=== PATIENT | female | born 1995 | race Caucasian/White ===

== ENCOUNTER 2017-02-01 18:13 | Emergency (ER) | payer MEDICAID ==
[2017-02-01 18:23] VITALS: BP 142/87
[2017-02-01 18:41] LABS: BILIRUBIN,URINE NEGATIVE (NEGATIVE); PH,URINE 7.5 PH (5.0-7.5)
--- NOTE | 2017-02-01 18:42 | ED Physician Documentation ---
PD HPI FEMALE - Stated complaint Stated Complaint: FEMALE - Chief complaint Chief Complaint: General - History obtained from History obtained from: Patient - History of Present Illness Timing - onset: Today Timing - duration: Days (1) Timing - details: Gradual onset Pain level max: 2 Pain level max: 1 Associated symptoms: Dysuria, Urinary frequency, Hematuria. No: Fever, Abdominal pain, Back pain, Pelvic pain, Vaginal pain, Vaginal bleeding, Vaginal discharge Contributing factors: No: Similar symptoms before: Diagnosis (UTI) Recently seen: Not recently seen Review of Systems Constitutional: denies: Fever, Chills GI: denies: Abdominal Pain, Nausea, Vomiting, Diarrhea, Hematemesis, Bloody / black stool : denies: Now EGA Skin: denies: Rash Musculoskeletal: denies: Back pain PD PAST MEDICAL HISTORY - Past Medical History Past Medical History: No - Past Surgical History Past Surgical History: No - Present Medications Home Medications: Ambulatory Orders Medication Instructions Recorded Confirmed Nitrofurantoin Monohyd/M-Cryst 100 mg PO BID #10 capsule 02/01/17 [Macrobid 100 mg Capsule] Phenazopyridine HCl [Pyridium] 200 mg PO TID PRN #6 tablet 02/01/17 - Allergies Allergies/Adverse Reactions: Allergies Allergy/AdvReac Type Severity Reaction Status Date / Time No Known Drug Allergies Allergy Verified 02/01/17 18:22 - Living Situation Living Situation: reports: With family Living Arrangement: reports: At home - Social History Does the pt drink ETOH?: No Does the pt have substance abuse?: No PD ED PE NORMAL - Vitals Vital signs reviewed: Yes - General General: Alert and oriented X 3, No acute distress, Well developed/nourished - HEENT HEENT: Moist mucous membranes - Neck Neck: Supple, no meningeal sign - Cardiac Cardiac: RRR, Strong equal pulses - Respiratory Respiratory: No respiratory distress, Clear bilaterally - Abdomen Abdomen: Soft, Non tender, Non distended - Back Back: No CVA TTP, No spinal TTP - Derm Derm: Warm and dry - Neuro Neuro: Alert and oriented X 3 - Psych Psych: Normal mood, Normal affect Results - Vitals Vitals: Vital Signs - 24 hr 02/01/17 18:18 Temperature 36.8 C Heart Rate 94 Respiratory 18 Rate Blood Pressure 142/87 H O2 Saturation 99 - Labs Labs: Laboratory Tests 02/01/17 18:20 Urine Color YELLOW Urine Clarity HAZY Urine pH 7.5 Ur Specific [place] 1.010 Urine Protein NEGATIVE Urine Glucose (UA) NEGATIVE Urine Ketones NEGATIVE Urine Occult Blood LARGE H Urine Nitrite NEGATIVE Urine Bilirubin NEGATIVE Urine Urobilinogen 0.2 (NORMAL) Ur Leukocyte Esterase SMALL H Urine RBC TNTC H Urine WBC 6-10 H Ur Squamous Epith Cells RARE Squamous Urine Bacteria Few Ur Microscopic Review INDICATED Urine Culture Comments INDICATED Urine HCG, Qual NEGATIVE PD MEDICAL DECISION MAKING - ED course Complexity details: reviewed results, re-evaluated patient, considered differential, d/w patient ED course: Patient is a 21-year-old female with what appears to be an uncomplicated UTI. Will place on antibiotics and Pyridium for home and follow-up with her PCP. She is not , breast-feeding or trying to become . Patient counseled regarding signs and symptoms for which I believe and urgent re- evaluation would be necessary. Patient with good understanding of and agreement to plan and is comfortable going home at this time This document was made in part using voice recognition software. While efforts are made to proofread this document, sound alike and grammatical errors may occur. Departure - Departure Disposition: 01 Home, Self Care Clinical Impression: UTI (urinary tract infection) Qualifiers: Urinary tract infection type: acute cystitis Hematuria presence: with hematuria Qualified Code(s): N30.01 - Acute cystitis with hematuria Condition: Good Instructions: ED UTI Cystitis Female Follow-Up: your,doctor in 1 week [Other] Prescriptions: Nitrofurantoin Monohyd/M-Cryst [Macrobid 100 mg Capsule] 100 mg PO BID #10 capsule Phenazopyridine HCl [Pyridium] 200 mg PO TID PRN #6 tablet PRN Reason: dysuria Comments: Take all antibiotics until gone. Return if you worsen. Discharge Date/Time: 02/01/17 19:04
[2017-02-01 18:43] LABS: HCG UR QUAL NEGATIVE; UA w/ MICROSCOPIC CHARGE YES
[2017-02-01 18:52] LABS: UR CULTURE IF IND INDICATED
[2017-02-01] MEDS ORDERED: NITROFURANTOIN MACRO 100 MG CAPSULE PO STA (18:57)
[2017-02-01] MEDS ORDERED: NITROFURANTOIN MACRO 100 MG CAPSULE PO ONE (19:06)
== END 2017-02-01 19:04 | disposition home or self-care (01) ==
LOC: ED 18:13
DX: N30.01 Acute cystitis with hematuria (principal)
CPT/HCPCS: 81001; 81003; 81025; 87077; 87086; 99283

== ENCOUNTER 2017-05-03 09:58 | Emergency (ER) | payer MEDICAID ==
--- NOTE | 2017-05-03 12:05 | ED Physician Documentation ---
PD HPI URI - Stated complaint Stated Complaint: THROAT PX - Chief complaint Chief Complaint: Heent - History obtained from History obtained from: Patient - History of Present Illness Timing - onset: How many weeks ago (1) Timing duration: Weeks (a week of some sore throat which worsened today, with exudate, adenopathy and feeling feverish.) Timing details: Gradual onset, Still present Associated symptoms: Chills, Sore throat, Swollen nodes. No: Nasal congestion, Rhinorrhea, Dry cough Contributing factors: No: Sick contact (she has had newer sexual contact and is concerned about STD. No dysuria nor vaginal discharge noted.), Travel, Immunocompromised Review of Systems Constitutional: reports: Chills, Myalgias Nose: denies: Rhinorrhea / runny nose, Congestion Throat: reports: Sore throat, Swollen tonsils. denies: Dental pain / toothache , Oral lesions / sores Respiratory: denies: Cough GI: denies: Nausea, Vomiting, Diarrhea : denies: Dysuria, Frequency, Discharge Skin: denies: Rash, Lesions PD PAST MEDICAL HISTORY - Past Surgical History Past Surgical History: No - Present Medications Home Medications: Ambulatory Orders Medication Instructions Recorded Confirmed Cephalexin [Keflex] 500 mg PO QID #24 capsule 05/03/17 DULoxetine [Cymbalta] 1 cap PO DAILY 05/03/17 05/03/17 Dexamethasone [Decadron] 4 mg PO DAILY #5 tablet 05/03/17 - Allergies Allergies/Adverse Reactions: Allergies Allergy/AdvReac Type Severity Reaction Status Date / Time No Known Drug Allergies Allergy Verified 02/01/17 18:22 - Social History Does the pt smoke?: No Smoking Status: Never smoker Does the pt drink ETOH?: No Does the pt have substance abuse?: No Substance Use and Type: Marijuana - Immunizations Immunizations are current?: Yes - POLST Patient has POLST: No PD ED PE NORMAL - Vitals Vital signs reviewed: Yes - General General: Alert and oriented X 3, Well developed/nourished - HEENT HEENT: Ears normal, Moist mucous membranes. No: Pharynx benign (both tonsils with swelling, exudate, and there is anterior adenopathy noted. No other URI symptoms. ) - Neck Neck: Supple, no meningeal sign, Other (anterior adenopathy both sides. none posterior. ) - Cardiac Cardiac: RRR, No murmur - Respiratory Respiratory: Clear bilaterally - Abdomen Abdomen: Soft, Non tender - Female Female : Deferred - Derm Derm: Normal color, Warm and dry Results - Vitals Vitals: Oxygen O2 Source Room air - Labs Labs: Microbiology 05/03/17 12:10 Group A Strep Throat Culture - Final Throat MIXED OROPHARYNGEAL JIMY PRESENT. NO BETA STREP PRESENT IN CULTURE. Laboratory Tests 05/03/17 05/03/17 12:10 12:10 Throat C trach RNA TMA NOT DETECTED Throat N gonorr RNA TMA NOT DETECTED Group A Strep Rapid Negative PD MEDICAL DECISION MAKING - ED course Complexity details: considered differential (exudative tonsils and adenopathy very suspicious for strep. She is also concerned about STDs as had sexual exposure unprotected. ), d/w patient Departure - Departure Disposition: Home, Self Care Clinical Impression: Pharyngitis Qualifiers: Pharyngitis/tonsillitis etiology: unspecified etiology Qualified Code(s): J02.9 - Acute pharyngitis, unspecified Condition: Stable Record reviewed to determine appropriate education?: Yes Instructions: ED Strep Pharyngitis Poss Prescriptions: Cephalexin [Keflex] 500 mg PO QID #24 capsule Dexamethasone [Decadron] 4 mg PO DAILY #5 tablet Comments: This looks like strep and will treat it that way at this point. We did test for STDs on both the throat swab and urine test and these will result in about 3 days. Will call you if we need to add or change antibiotics. For now use cephalexin as directed and Decadron anti-inflammatory daily as directed. Drink lots of fluids. Tylenol or ibuprofen if needed for fevers and pains. Recheck if not improving over the next 2-3 days. Forms: Activity restrictions Discharge Date/Time: 05/03/17 12:33
[2017-05-03] MEDS ORDERED: DEXAMETHASONE 10 MG/ML VIAL PO STA (12:16)
[2017-05-03] MEDS ORDERED: cephALEXin 250 MG CAPSULE PO STA (12:16)
[2017-05-03] MEDS ORDERED: CHERRY SYRUP 10 ML UDC PO ONE (12:29)
[2017-05-03 12:33] VITALS: BP 111/70
[2017-05-06 21:57] LABS: C.TRACHOMATIC RNA TMA THROAT NOT DETECTED; N.GONORRHOEAE RNA TMA THROAT NOT DETECTED
== END 2017-05-03 12:33 | disposition home or self-care (01) ==
LOC: ED 09:58
DX: J02.9 Acute pharyngitis, unspecified (principal)
CPT/HCPCS: 87070; 87430; 87491; 99283; A9270; 87591

== ENCOUNTER 2017-05-22 08:57 | Emergency (ER) | payer MEDICAID ==
[2017-05-22 09:06] VITALS: BP 114/51
[2017-05-22] MEDS ORDERED: DEXAMETHASONE 10 MG/ML VIAL PO STA (09:15)
[2017-05-22] MEDS ORDERED: CHERRY SYRUP 10 ML UDC PO ONE (09:36)
--- NOTE | 2017-05-22 09:50 | ED Physician Documentation ---
History of Present Illness - Stated complaint Stated Complaint: SORE THROAT - Chief complaint Chief Complaint: Heent - Additonal information Additional information: hx from pt to ER with sore throat and swelling also fever and mild cough seen for sore throat approx 3 weeks ago, strep was neg as were GC chlamydia swabs of her throat - txed with keflex got better now worse again Review of Systems Constitutional: reports: Fever Throat: reports: Sore throat Respiratory: reports: Cough GI: denies: Vomiting : denies: Now EGA Endocrine: denies: Easy bruising / bleeding Immunocompromised: denies: Immunocompromised PD PAST MEDICAL HISTORY - Past Medical History Past Medical History: No - Past Surgical History Past Surgical History: No - Present Medications Home Medications: Ambulatory Orders Medication Instructions Recorded Confirmed Cephalexin [Keflex] 500 mg PO QID #24 capsule 05/03/17 DULoxetine [Cymbalta] 1 cap PO DAILY 05/03/17 05/03/17 Dexamethasone [Decadron] 4 mg PO DAILY #5 tablet 05/03/17 Penicillin Vk 500 mg PO Q8H 10 Days tablet 05/22/17 - Allergies Allergies/Adverse Reactions: Allergies Allergy/AdvReac Type Severity Reaction Status Date / Time No Known Drug Allergies Allergy Verified 05/22/17 09:06 - Social History Does the pt smoke?: No Smoking Status: Never smoker Does the pt drink ETOH?: No Does the pt have substance abuse?: No - Immunizations Immunizations are current?: Yes - POLST Patient has POLST: No PD ED PE NORMAL - Vitals Vital signs reviewed: Yes - General General: Alert and oriented X 3 - HEENT HEENT: PERRL, Moist mucous membranes, Other (erythema swelling and exudate, no ingot weigher, no trismus) - Neck Neck: Supple, no meningeal sign - Cardiac Cardiac: RRR - Respiratory Respiratory: No respiratory distress, Clear bilaterally - Abdomen Abdomen: Soft, Non tender Results - Vitals Vitals: Vital Signs - 24 hr 05/22/17 09:05 Temperature 37.6 C H Heart Rate 115 H Respiratory 18 Rate Blood Pressure 114/51 L O2 Saturation 100 Oxygen O2 Source Room air - Labs Labs: Laboratory Tests 05/22/17 09:05 Group A Strep Rapid POSITIVE H PD MEDICAL DECISION MAKING - ED course ED course: pt refuses lab draw for mono and nasal swab strep is + again so will tx again HR noted - likely 2/2 pain and poor PO intake - do not think pt is septic and she is declining blood work Departure - Departure Disposition: 01 Home, Self Care Clinical Impression: Strep pharyngitis Condition: Good Instructions: ED Strep Pharyngitis Conf Prescriptions: Penicillin Vk 500 mg PO Q8H 10 Days tablet Comments: The steroids we gave you in the ER will decrease the swelling until the antibiotics can work May take motrin and tylenol for pain and fever Throat lozenges such as cepacol will help too Drink plenty of fluids Forms: Activity restrictions
== END 2017-05-22 09:58 | disposition home or self-care (01) ==
LOC: ED 08:57
DX: J02.0 Streptococcal pharyngitis (principal)
CPT/HCPCS: 87430; 99283; A9270